=== PATIENT | female | born 1985 | race Caucasian/White ===

== ENCOUNTER 2017-01-02 15:46 | Emergency (ER) | payer MEDICARE, OTHER ==
[~2017-01-02] VITALS: Ht 170.2 cm; Wt 63.0 kg
[~2017-01-02 15:46] MED LIST: DEPO150I IM; RISP0.5T28 SL; VALP250S2 PO
[2017-01-02 15:48] VITALS: BP 135/76; PULSE 110; RESP 20; TEMP 98.6; O2SAT 99
--- NOTE | 2017-01-02 16:20 | PD ---
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 Denies paresthesias, loss of sensation to the affected extremity. Reports decreased range motion to the wrist secondary to pain. Denies fever, vomiting. Has not taken any medications to alleviate her symptoms. Has an ice pack place. Allergies to amoxicillin. No other medical complaints. No other modifying factors or associated signs and symptoms. PFSH Past Medical History Autoimmune Disease: No Bipolar Disorder: Yes Anxiety: Yes Cancer: No Chemotherapy: No Diabetes: No Diminished Hearing: No Endocrine: No Glaucoma: Yes Immune Disorder: No Neurologic: Yes (Hydrocephalus - last seen a couple of months ago.) Psychiatric: Yes Radiation Therapy: No Thyroid Disease: No ?: Not LMP: 10/2016 : 0 Past Surgical History Pacemaker: No Social History Alcohol Use: No Tobacco Use: No Substance Use: No Allergies-Medications (Allergen,Severity, Reaction): Coded Allergies: Amoxicillin (Verified Allergy, Unknown, 01/02/17) Reported Meds & Prescriptions Reported Meds & Active Scripts Active Risperdal M-Tab (Risperidone) 0.5 Mg Tab 0.5 Mg SL Q12HR Depo-Provera Inj (Medroxyprogesterone Inj) 150 Mg/Ml Inj 150 Mg IM Q90D Reported Valproic Acid Liq 250 Mg/5 Ml Syp 500 Mg PO BID Review of Systems Except as stated in HPI: all other systems reviewed are Neg Physical Exam Narrative GENERAL: Well-nourished, well-developed female patient, in no acute distress SKIN: Warm and dry. HEAD: Atraumatic. Normocephalic. EYES: Pupils equal and round. No scleral icterus. No injection or drainage. ENT: Mucosa pink and moist. Airway patent. NECK: Trachea midline. CARDIOVASCULAR: Regular rate. RESPIRATORY: No accessory muscle use. GASTROINTESTINAL: Flat. MUSCULOSKELETAL: Right wrist is mildly edematous and with tenderness on palpation to the dorsal aspect; with no erythema, ecchymosis; no obvious deformity; with limited range of motion. Right upper approximately supplemented with 2+ radial pulse and sensory intact and without erythema or edema. No obvious deformities. No clubbing. No cyanosis. NEUROLOGICAL: Awake and alert. Oriented 3. No obvious cranial nerve deficits. Motor grossly within normal limits. Normal speech. PSYCHIATRIC: Appropriate mood and affect; insight and judgment normal. Data Data Last Documented VS Vital Signs Date Time Temp Pulse Resp B/P Pulse Ox O2 Delivery O2 Flow Rate FiO2 01/02/17 15:48 98.6 110 20 135/76 99 Room Air Orders Wrist, Complete ([id number]) (01/02/17 16:06) [facility] Medical Decision Making Medical Screen Exam Complete: Yes Emergency Medical Condition: Yes Medical Record Reviewed: Yes Differential Diagnosis Wrist sprain, wrist fracture, wrist dislocation Narrative Course 31-year-old female with right wrist injury. I offered the patient a nonnarcotic while in the ER and she declined. Right wrist x-ray ordered. Diagnosis Primary Impression: Right wrist sprain Qualified Code: S63.501A - Right wrist sprain, initial encounter Referrals: Primary Care Physician Patient Instructions: General Instructions, Wrist Sprain (ED) Departure Forms: Tests/Procedures, Work Release Enter return to work date: January 09, 2017 Additional Instructions: Tylenol or ibuprofen as directed and as needed to reduce pain Rest, ice, compress, and elevate extremity to decrease pain and inflammation Wrist Splint for support Avoid aggravating activity; increase activity as tolerated Follow-up with primary care provider Return to the emergency department immediately with worsening symptoms Med/Other Pt SpecificInfo: No Meds Exist/No RX given Disposition: 01 DISCHARGE HOME Condition: Stable Rupinder Mcarthur Jan 02, 2017 16:20
--- NOTE | 2017-01-02 16:31 | RADRPT ---
EXAM DATE/TIME: 01/02/2017 16:23 [facility] COMPARISON: No previous studies available for comparison. INDICATIONS : Right wrist pain, caught between large patient and wheelchair handle MEDICAL HISTORY : Hair line fracture right wrist over 5 yrs ago SURGICAL HISTORY : None. ENCOUNTER: Initial ACUITY: 1 day PAIN SCORE: 8/10 LOCATION: Right wrist FINDINGS: Three view examination of the right wrist demonstrates no soft tissue swelling, dislocation, or fract ure. The carpal bones are in normal alignment. The joint spaces are maintained. Bony mineralizatio n is normal. CONCLUSION: Negative trauma study. Niraj Gabriel MD on January 02, 2017 at 16:29 Board Certified Radiologist. This report was verified electronically.
[2017-02-10] MEDS ORDERED: VALP250S2 PO (11:04)
== END 2017-01-02 17:10 | disposition home or self-care (01) ==
LOC: NEPK 15:46
DX: S63.501A Unspecified sprain of right wrist, initial encounter (principal); X50.9XXA Other and unspecified overexertion or strenuous movements or postures, initial encounter; Y93.F9 Activity, other caregiving
CPT/HCPCS: 73110; 99283; L3908